=== PATIENT | female | born 1955 | race Caucasian/White ===

== ENCOUNTER 2016-12-25 06:59 | Outpatient (CLI) | payer MEDICAID ==
[2016-12-25] VITALS (19 sets, daily range): BP systolic 107–142; BP diastolic 71–90; PULSE 85–114
[~2016-12-25] VITALS: Ht 160 cm; Wt 87.8 kg
[~2016-12-25 06:59] MED LIST: 00186-0372-20 IH; AMBIEN 10MG10 MG PO; ASPIRIN 81M81 MG/TA2 PO; ASPIRIN E.C. 8181 MG PO; BUSPAR10 MG PO; CYMBALTA 60MG60 MG PO; MOBIC15 MG PO; NORCO 325 MG-7.1 TAB PO; PAMELOR 25MG25 MG PO; PERCOCET 325 MG1 TAB PO; PRINIVIL40 MG PO; PROAIR HFA0.09 MG/AC IH; ULTRAM 50MG TAB50 MG PO; XANAX .25M0.25 MG/TA PO
== END 2016-12-25 13:32 | disposition home or self-care (01) ==
LOC: COL.RAD 06:59
DX: R91.1 Solitary pulmonary nodule (principal)
CPT/HCPCS: J2250; J3010

== ENCOUNTER → 2017-04-06 | Outpatient (CLI) | payer MEDICAID | LOC: COL.RAD 09:24 | DX: R91.1 Solitary pulmonary nodule (principal); K76.89 Other specified diseases of liver; J44.9 Chronic obstructive pulmonary disease, unspecified; I07.1 Rheumatic tricuspid insufficiency | CPT/HCPCS: Q9967 ==